=== PATIENT | female | born 1980 | race Caucasian/White ===

== ENCOUNTER 2016-12-12 16:55 | Emergency (ER) | payer MEDICARE, OTHER ==
[2016-12-12 17:12] VITALS: BP 153/90
[2016-12-12] MEDS ORDERED: NITROGLYCERIN 0.4 MG/TAB BTL SL PRN (17:19)
[2016-12-12] MEDS ORDERED: ASPIRIN 81 MG TAB.CHEW PO ONE (17:19)
[2016-12-12] MEDS ORDERED: ALBUTEROL SULFATE/IPRATROPIUM 3 ML NEBU IH ONE ×2 (17:19→17:30)
[2016-12-12] MEDS ORDERED: METHYLPREDNISOLONE SOD SUCC/PF 125 MG/2 ML VIAL IM ONE (17:22)
--- NOTE | 2016-12-12 17:26 | ERNOTE ---
<LibertyAshley - Last Filed: 12/12/16 19:06> Dyspnea - Date Date of Service: 12/12/16 - General Presenting Symptoms: shortness of breath, difficulty of breathing, other - chest pain Time Seen by Provider: 12/12/16 17:14 Source: patient, family, RN notes reviewed Exam Limitations: clinical condition - Immun/Allergies/Home Medications Immunizations: IMMUNIZATION HX History of Influenza Vaccine Yes Hx Pneumococcal Vaccination No Allergies/Adverse Reactions: Allergies desmopressin [Desmopressin] Allergy (Severe, Verified 12/12/16 17:12) Hives Home Medications: HOME MEDICATIONS Esomeprazole Magnesium [Nexium] 40 mg PO DAILY 04/05/16 [Last Taken Unknown] Levothyroxine Sodium [Synthroid] 125 mcg PO DAILY 04/05/16 [Last Taken Unknown] Lurasidone HCl [Latuda] 60 mg PO DAILY 04/05/16 [Last Taken Unknown] Mirabegron [Myrbetriq] 50 mg PO DAILY 04/05/16 [Last Taken Unknown] Montelukast Sodium [Singulair] 10 mg PO DAILY 04/05/16 [Last Taken Unknown] Hazel 1 tab PO DAILY 04/05/16 [Last Taken Unknown] clonazePAM [Klonopin] 1 mg PO TID 04/05/16 [Last Taken Unknown] lamoTRIgine [Lamictal] 300 mg PO DAILY 04/05/16 [Last Taken Unknown] metFORMIN HCL [Glucophage] 1,000 mg PO BIDWM 04/05/16 [Last Taken Unknown] [place] Carbonate 300 mg PO BID 05/14/16 [Last Taken Unknown] Acetaminophen [Tylenol] 1,000 mg PO Q6H PRN #30 tablet 05/18/16 [Last Taken Unknown] Albuterol Sulfate [Albuterol Sulfate 2.5 MG/0.5ML] 2.5 mg IH Q4H PRN #1 vial.neb 05/18/16 [Last Taken Unknown] Albuterol Sulfate/Ipratropium [Duoneb 2.5-0.5MG/3ML Soln] 3 ml IH QID #7 nebu [Last Taken Unknown] HYDROcodone/CHLORPHEN P-STIREX [Tussionex Pennkinetic Suspension] 5 ml PO Q12H PRN #1 udc 05/18/16 [Last Taken Unknown] Levofloxacin [Levaquin] 500 mg PO DAILY #1 05/18/16 [Last Taken Unknown] Nicotine [Nicoderm] 21 mg TD Q24H #30 patch.td24 05/18/16 [Last Taken Unknown] Pantoprazole Sodium [Protonix] 40 mg PO DAILY #30 tablet. 05/18/16 [Last Taken Unknown] predniSONE [Prednisone] 2 tab PO DAILY #10 tab 05/18/16 [Last Taken Unknown] Levofloxacin [Levaquin] 500 mg PO DAILY #13 tab 12/12/16 [Last Taken Unknown] predniSONE [Prednisone] 3 tab PO BID #57 tab 12/12/16 [Last Taken Unknown] - Pain Score Pain Score #1 Pain Score: 3 - chest pain - History of Present Illness Narrative: Dorcas is a 36 year old female with a history of COPD, also a heavy smoker, who presents to er with c/o increased dyspnea and chest pain. States that she has cp with her COPD exac. denies fever, nasal congestion. denies any radiation of the chest pain. duoneb prior to arrival. recent trip to [place]. pt is obese. denies calf pain. dyspnea worse with exertion. eating and drinking ok. Severity: moderate, severe Treatment [employer]: albuterol Initiating event: Reports: other - exertion Frequency of episodes: Reports: occassional episodes Modifying Factors - (Improves): Reports: nothing Modifying Factors (Worsens): Reports: nothing Associated Symptoms-Dyspnea: Reports: chest pain/discomfort, cough. Denies: fever/chills, sweating, palpitations, wheezing, leg/calf pain, ankle/leg swelling, weakness, loss of appetite Review of Systems - Review of Systems Constitutional: Present: no symptoms reported EYE: Present: no symptoms reported ENT: Present: no symptoms reported Respiratory: Present: shortness of breath, cough Cardiology: Present: chest pain. Absent: syncope Gastrointestinal/Abdominal: Present: nausea. Absent: vomiting, diarrhea Genitourinary: Present: no symptoms reported Musculoskeletal: Present: no symptoms reported Skin: Present: no symptoms reported Neurological: Present: no symptoms reported Endocrine: Present: no symptoms reported Hematologic/Lymphatic: Present: no symptoms reported Psych: Present: no symptoms reported All Other Systems: All systems neg except as marked - Patient's Past Medical History Patient History - Medical: Anxiety, Diabetes Type 2, Depression, GERD, Hypothyroidism Patient History - Cardiac/Respiratory: COPD, Hypertension, Hyperlipidemia Patient History - Cancer: No Hx of Cancer Patient History - Surgical Procedures: T & A Patient History - Other: None LMP (females 10-50): 3 weeks - Family History Mother Family History - Cardiac/Respiratory: CHF - Social History Living Situations: home Psych History: Hx of Anxiety, Hx of Depression Smoking Status: Current every day smoker Alcohol Use: none Drug Use: none - Immunizations Hx Pneumococcal Vaccination: No History of Influenza Vaccine: Yes Physical Exam - Physical Exam General Appearance: Present: alert, mild distress, anxious Eye Exam: Normal inspection: bilateral Ears, Nose, Throat: Present: normal ENT inspection, hearing grossly normal, normal pharynx Neck: Present: normal inspection, nontender, supple, full range of motion Respiratory: Present: no accessory muscle use, chest nontender, decreased breath sounds, rhonchi Cardiovascular/Chest: Present: regular rate, rhythm, normal peripheral pulses, tachycardia Gastrointestinal/Abdominal: Present: nontender, nondistended, soft Rectal Exam: Present: deferred Back Exam: Present: normal inspection, no vertebral tenderness Extremity Exam: Present: normal inspection, non-tender, no edema, normal range of motion Neurological Exam: Present: alert, oriented Skin Exam: Present: normal color, warm/dry ED Progress - Date and Time Seen: Date and Time: 12/12/16 18:20 d-dimer elevated. will order ct of chest to rule out pe. pt states she gets nauseated with iv contrast. will premedicate with iv zofran. - Results and Orders Results and Orders: Laboratory Tests 12/12/16 12/12/16 12/12/16 17:29 17:29 17:29 WBC 13.3 H RBC 5.42 H Hgb 15.6 Hct 47.3 H MCV 87.3 MCH 28.8 MCHC 33.0 RDW 11.9 Plt Count 386 MPV 9.0 Immature Gran % (Auto) 0.40 Immature Gran # (Auto) 0.05 H Neutrophils % 61.2 Lymphocytes % 26.7 Monocytes % 5.9 Eosinophils % 5.2 H Basophils % 0.6 Nucleated RBC % 0.0 Neutrophils # 8.1 H Lymphocytes # 3.5 Monocytes # 0.8 Eosinophils # 0.7 Absolute Basophils 0.1 PT 9.9 INR (Anticoag Therapy) 0.95 PTT ([place]) 23.8 L pCO2 pO2 HCO3 Total CO2 Base Excess ABG pH ABG O2 Sat (Measured) Sodium 137 Plasma Sodium 137 Potassium 4.2 Chloride 101 Carbon Dioxide 23.5 L Anion Gap 16.7 H BUN 14 Creatinine 0.96 Est GFR (Non-Af Amer) 71 BUN/Creatinine Ratio 14.6 Random Glucose 104 Calcium 9.6 Calcium Adj for Albumin 9.6 Total Bilirubin 0.3 AST 32 ALT 46 Alkaline Phosphatase 88 Troponin I Less than 0.017 B-Natriuretic Peptide 15 Total Protein 8.1 Albumin 3.6 Serum HCG, Qual 12/12/16 12/12/16 17:29 17:52 WBC RBC Hgb Hct MCV MCH MCHC RDW Plt Count MPV Immature Gran % (Auto) Immature Gran # (Auto) Neutrophils % Lymphocytes % Monocytes % Eosinophils % Basophils % Nucleated RBC % Neutrophils # Lymphocytes # Monocytes # Eosinophils # Absolute Basophils PT INR (Anticoag Therapy) PTT ([place]) pCO2 30.4 L pO2 70.9 L HCO3 18.8 L Total CO2 19.7 Base Excess -4.4 L ABG pH 7.41 ABG O2 Sat (Measured) 94.6 Sodium Plasma Sodium Potassium Chloride Carbon Dioxide Anion Gap BUN Creatinine Est GFR (Non-Af Amer) BUN/Creatinine Ratio Random Glucose Calcium Calcium Adj for Albumin Total Bilirubin AST ALT Alkaline Phosphatase Troponin I B-Natriuretic Peptide Total Protein Albumin Serum HCG, Qual Negative - Vital Signs Vital Signs: Vital Signs 12/12/16 17:05 Temperature 36.6 C Pulse Rate 110 H Respiratory 17 Rate Blood Pressure 153/90 O2 Sat by Pulse 93 Oximetry - EKG EKG: supraventricular tachycardia, nonspecific ST T wave changes EKG read: Interp. by me - X-Ray X-Ray #1 X-Ray: chest Interpretation: Reviewed by me X-ray Comments: Exam Date: 12/12/2016 18:07 Ordering Physician: Ashley Koenig History: History of COPD. Increasing shortness of breath. Cough and tightness in chest. Heavy smoker. Technique: PA and lateral views of the chest are compared to prior examination dated December 01, 2016.. Findings: Stable scattered calcified granulomas. Stable chronic bronchial wall thickening likely related to smoking. There is no consolidation, pleural effusion or pneumothorax. Cardiac silhouette and pulmonary vasculature are normal. The osseous structures are normal. IMPRESSION: NO ACUTE CARDIOPULMONARY ABNORMALITY IDENTIFIED. Electronically signed by Ted Mariscal D.O.. - Progress/Reassessment Chief Complaint: Dyspnea Progress:: Re-examined - Transfer of Care Physician Sign Out: Ashley Koenig Brief History: 36 year old female, heavy smoker, hx copd presents to er with dypsnea and cp. cp workup neg. chest xray shows chronic changes, no acute. d dimer elevated, recent travel. awaiting ct of chest to rule out pe. Receiving Physician: Tyrese Davis Pending Results: CT/MRI results Expected Disposition: Discharge Departure Clinical Impression: COPD exacerbation Pneumonia Qualifiers: Pneumonia type: due to unspecified organism Laterality: bilateral Lung location : upper lobe of lung Qualified Code(s): J18.9 - Pneumonia, unspecified organism - Departure Disposition: Home self-care Condition: Good Instructions: Community-Acquired Pneumonia, Adult, [id number], Chronic Obstructive Pulmonary Disease Exacerbation, [id number] Additional Instructions: Followup with your doctor next week. In two weeks, obtain another chest CT scan to make sure the pneumonia is gone. The pneumonia was NOT seen on the plain CXR, only on the CT scan. STOP SMOKING Prescriptions: Levofloxacin [Levaquin] 500 mg PO DAILY #13 tab predniSONE [Prednisone] 3 tab PO BID #57 tab <Tyrese Davis - Last Filed: 12/12/16 20:19> Dyspnea - Immun/Allergies/Home Medications Immunizations: IMMUNIZATION HX History of Influenza Vaccine Yes Hx Pneumococcal Vaccination No ED Progress - Results and Orders Patient's Lab Results:: I have reviewed the patient's lab results. - Vital Signs Patient's Vital Signs:: I have reviewed the patient's vital signs. Vital Signs: Vital Signs 12/12/16 12/12/16 12/12/16 17:05 17:45 17:50 Temperature 36.6 C Pulse Rate 110 H 110 H Respiratory 17 Rate Blood Pressure 153/90 O2 Sat by Pulse 93 94 Oximetry 12/12/16 19:57 Temperature Pulse Rate 124 H Respiratory 17 Rate Blood Pressure O2 Sat by Pulse 95 Oximetry - Progress/Reassessment Progress Note-Subjective: 12/12/16 20:13 I have reviewed the chest CT report. There is no evidence for pulmonary embolism. There is evidence for multiple nodular infiltrates, not seen on plane CXR, and the radiologist recommends followup.
[2016-12-12] MEDS ORDERED: METHYLPREDNISOLONE SOD SUCC/PF 125 MG/2 ML VIAL ONE (17:29)
[2016-12-12] MEDS ORDERED: ASPIRIN 81 MG TAB.CHEW ONE (17:30)
[2016-12-12 17:37] LABS: Hematocrit 47.3 % (37.0-47.0); Hemoglobin 15.6 gm/dL (12.5-16.0); Mean Cell Volume 87.3 fl (78-100); Mean Corpuscular Hemoglobin 28.8 pg (27-31); Neutrophil # 8.1 K/mm3 (1.3-6.0); Neutrophil % 61.2 % (42-75.0); Platelet Count 386 K/mm3 (150-450); Red Blood Count 5.42 M/mm3 (4.2-5.4); Red Cell Distribution Width 11.9 % (11.5-14.0); White Blood Count 13.3 K/mm3 (4.0-10.5)
[2016-12-12 17:48] LABS: Prothrombin Time (Patient) 9.9 Seconds (9.4-11.4)
[2016-12-12 17:52] LABS: INR 0.95 INR (0.90-1.10); Partial Thrombolplastin Time 23.8 Seconds (24-32)
[2016-12-12 17:56] LABS: ALT 46 U/L (19-67); AST 32 U/L (0-48); Albumin * 3.6 gm/dl (3.4-5.0); Alkaline Phosphatase * 88 U/L (50-170); Anion Gap 16.7 mmol/L (6.8-13.8); BNP * 15 pg/mL (5-150); BUN/Creatinine Ratio 14.6 (9.0-21.6); Bilirubin, Total 0.3 mg/dL (0.0-1.1); Blood Urea Nitrogen 14 mg/dL (3-23); Ca. Corrected For Albumin 9.6 mg/dL (8.4-10.2); Calcium * 9.6 mg/dL (7.9-10.9); Carbon Dioxide 23.5 mmol/L (24-32.6); Chloride 101 mmol/L (97-106); Glucose * 104 mg/dL (70-110); Potassium 4.2 mmol/L (3.4-4.6); Sodium 137 mmol/L (132-142); Total Protein 8.1 gm/dL (6.2-8.2); Troponin I Less than 0.017 ng/ml (0.00-0.10)
[2016-12-12] MEDS ORDERED: ONDANSETRON HCL/PF 2 MG/ML VIAL IV ONE (18:22)
[2016-12-12] MEDS ORDERED: ONDANSETRON HCL/PF 2 MG/ML VIAL ONE (18:39)
[2016-12-12] MEDS ORDERED: LEVOFLOXACIN/D5W 500 MG/100 ML BAG IV SCH (19:00)
[2016-12-12] MEDS ORDERED: ALBUTEROL SULFATE 2.5 MG/0.5 ML VIAL.NEB IH ONE ×3 (19:00→19:20)
[2016-12-12 20:20] LABS: Hematocrit 46.8 % (37.0-47.0); Hemoglobin 15.2 gm/dL (12.5-16.0); Mean Cell Volume 87.2 fl (78-100); Mean Corpuscular Hemoglobin 28.3 pg (27-31); Mean Corpuscular Hgb Conc 32.5 g/dl (32-36); Mean Platelet Volume 8.8 fl (6.0-9.5); Neutrophil # 11.7 K/mm3 (1.3-6.0); Neutrophil % 80.8 % (42-75.0); Platelet Count 389 K/mm3 (150-450); Red Blood Count 5.37 M/mm3 (4.2-5.4); Red Cell Distribution Width 11.8 % (11.5-14.0); White Blood Count 14.5 K/mm3 (4.0-10.5)
[2016-12-12 20:34] LABS: Albumin * 3.6 gm/dl (3.4-5.0); Anion Gap 20.3 mmol/L (6.8-13.8); BUN/Creatinine Ratio 15.4 (9.0-21.6); Bilirubin, Total 0.3 mg/dL (0.0-1.1); Ca. Corrected For Albumin 9.4 mg/dL (8.4-10.2); Calcium * 9.4 mg/dL (7.9-10.9); Carbon Dioxide 20.2 mmol/L (24-32.6); Potassium 4.5 mmol/L (3.4-4.6); Total Protein 8.1 gm/dL (6.2-8.2)
== END 2016-12-12 21:07 | disposition home or self-care (01) ==
LOC: ER 16:55
PROC: 4A033R1 Measurement of Arterial Saturation, Peripheral, Percutaneous Approach (ICD-10-PCS; principal; 2016-12-12)
DX: J06.9 Acute upper respiratory infection, unspecified (principal); J44.9 Chronic obstructive pulmonary disease, unspecified; F17.210 Nicotine dependence, cigarettes, uncomplicated; J18.9 Pneumonia, unspecified organism; R07.9 Chest pain, unspecified

== ENCOUNTER 2016-12-18 14:17 | Emergency (ER) | payer MEDICARE, OTHER ==
[2016-12-18] MEDS ORDERED: ALBUTEROL SULFATE/IPRATROPIUM 3 ML NEBU IH ONE ×2 (15:09→15:19)
--- OUTSIDE RECORDS SUMMARY | 2016-12-18 15:11 | XMS REPORT | Continuity of Care Document ---
:1980 Author Organization [employer] [place] [id number] Care Team Providers Name Role Phone Jersey Gonzales Primary Care Provider [phone] Source Comments This disclosure is being made pursuant to the [employer] program and maynot contain all information available regarding this patient.[employer] Active Allergies and Adverse Reactions Allergen Noted Date Severity Reactions Comments Desmopressin 02/27/2013 Low Edema Current Medications Be aware that medications may not be up to date as of this document. Alwaysverify current medications with the patient. Prescription Sig. Disp. Refills Start Date End Date Status metFORMIN Take 500 mg by Active (GLUCOPHAGE) 500 MG mouth 2 (two) tablet times daily with meals. Indications: Polycystic Ovary Syndrome levothyroxine Take 100 mcg by Active (SYNTHROID, mouth every LEVOTHROID) 100 MCG morning. Takes 200 tablet mcg every Tuesday Indications: Underactive Thyroid drospirenone-ethinyl Take 1 tablet by Active estradiol (ROBBIN mouth daily. 28) 3-0.03 MG per tablet Albuterol Sulfate Inhale 2 puffs Active (PROVENTIL HFA IN) into the lungs every 4 (four) hours as needed. omeprazole Take 20 mg by Active (PRILOSEC) 20 MG mouth daily after capsule breakfast. chlorhexidine Use as directed 15 900 mL 0 03/05/2013 Active (PERIDEX) 0.12 % mLs in the mouth solution or throat every 12 (twelve) hours. fluPHENAZine Take 2 tablets by 60 tablet 1 03/05/2013 Active (PROLIXIN) 5 MG mouth nightly. tablet hydrOXYzine Take 1 capsule by 120 capsule 1 03/05/2013 Active (VISTARIL) 50 MG mouth 4 (four) capsule times daily. Indications: Feeling Anxious traZODone (DESYREL) Take 3 tablets by 90 tablet 1 03/05/2013 Active 100 MG tablet mouth nightly. gabapentin Take 2 capsules by 180 capsule 1 03/05/2013 Active (NEURONTIN) 100 MG mouth 3 (three) capsule times daily. Active Problems Problem Noted Date Schizophrenia ([facility]) 03/03/2013 Polysubstance (excluding opioids) dependence ([facility]) 03/03/2013 Most Recent Encounters Date Type Specialty Providers Description 10/21/2016 Data Import Social History Tobacco Use Types Packs/Day Years Used Date Current Every Day Smoker 2 Tobacco Cessation:Ready to Quit: No Comments: Alcohol Use Drinks/Week oz/Week Comments No Last Filed Vital Signs Vital Sign Reading Time Taken Blood Pressure 116/84 03/05/2013 9:00 AM CDT Pulse 74 03/05/2013 9:00 AM CDT Temperature 36.8 C (98.2 F) 03/05/2013 9:00 AM CDT Respiratory Rate 16 03/05/2013 9:00 AM CDT Height 1.727 m (5' 8") 02/27/2013 7:22 PM CDT Weight 158.305 kg (349 lb) 02/27/2013 7:22 PM CDT Body Mass Index 53.08 02/27/2013 7:22 PM CDT Oxygen Saturation 92% 02/27/2013 5:40 PM CDT Plan of Care Health Maintenance Due Date Last Done Comments Tetanus/Pertussis (1 - Tdap) 2001 Pap Smear 2003 Influenza Immunization (#1) 2016 Results from Last 3 Months Not on file
--- OUTSIDE RECORDS SUMMARY | 2016-12-18 15:11 | XMS REPORT | Continuity of Care Document ---
:1980 Author Organization [facility] ([facility]) [place] [address] Phone [phone] Care Team Providers Name Role Phone Shazia Drake Primary Care Provider [phone] Source Comments This disclosure is being made pursuant to the Care Everywhere program, applicable federal and state laws, and may not contain all informaitonavailable regarding this patient.[facility] ([facility]) Active Allergies and Adverse Reactions Allergen Noted Date Severity Reactions Comments Desmopressin 06/16/2012 Urticaria (Hives),Angioedema Current Medications Prescription Sig. Disp. Refills Start Date End Date Status ZOLPIDEM TARTRATE Take by mouth. Active (AMBIEN PO) CLONAZEPAM PO Take by mouth. Active RISPERIDONE (RISPERDAL Take by mouth. Active PO) CITALOPRAM HYDROBROMIDE Take by mouth. Active (CELEXA PO) traMADol 50 mg tablet Take 1-2 Tabs by 20 Tab 0 06/16/2012 Active mouth every 6 hours as needed for Pain. Indications: PAIN ondansetron 4 mg tablet Take 1 tablet (4 10 tablet 0 2016 Active mg total) by mouth every 6 hours as needed for Nausea&Vomiting. promethazine-codeine Take 5 mL by 118 mL 0 2016 Active 6.25-10 mg/5 mL syrup mouth every 8 hours as needed for cough. Active Problems Problem Noted Date Unspecified symptom associated with female genital organs 10/11/2005 Most Recent Encounters Date Type Specialty Providers Description 12/03/2016 Lab Requisition Pathology [facility] Dx: Neoplasm of uncertain behavior of skin Social History Tobacco Use Types Packs/Day Years Used Date Current Every Day Smoker 2 13 Smokeless Tobacco: Never Used Last Filed Vital Signs Vital Sign Reading Time Taken Blood Pressure 133/67 2016 5:23 PM CDT Pulse 116 2016 5:22 PM CDT Temperature 37.1 C (98.8 F) 2016 5:22 PM CDT Respiratory Rate 24 2016 5:22 PM CDT Height 1.73 m (5' 8.11") 10/11/2005 9:40 AM [employer]INDOWS IN[employer]ER Weight 115.096 kg (253 lb 11.8 oz) 01/10/2006 12:46 PM [employer]INDOWS [employer]INEER Body Mass Index 38.46 01/10/2006 12:46 PM [employer]INDOWS [employer] ENGINEER Oxygen Saturation 94% 2016 5:22 PM CDT Plan of Care Health Maintenance Due Date Last Done Comments Hepatitis B Vaccine (1 of 3 - Primary Series) 1982 Tdap Vaccine 1993 MMR Vaccine 2000 Td Vaccine 2000 Varicella Vaccine (1 of 2 - Adult - No Evidence of 2000 Immunity) Pneumococcal Vaccine (1 of 1 - PPSV23) 2001 Lipid Disorder Screening 01/03/2011 01/03/2006 Cervical Cancer Screening 2012 Influenza Vaccine: Seasonal (#1) 06/07/2016 Results from Last 3 Months DERMATOPATHOLOGY EXAM (12/01/2016 1:05 PM) Component Value Range Case Report Surgical Pathology Case: [id number] Authorizing Provider:[facility] Collected: 12/01/2016 01:05 PM Pathologist: Roosevelt Pollack MD Received:12/03/2016 01:06 PM Specimen:Skin, other, specify, L Forearm Diagnosis Skin, left forearm, punch: 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 Clinical Information Tissue source/site: [id number] forearm. Pertinent clinical history and findings: Firm nodules, nontender. Clinical differential diagnosis: Panniculitis vs sarcoid vs deep GA. Gross Description A.Received in formalin, in a container labeled Asif, Dorcas L, date of , and "L Forearm", is a 0.5 cm in diameter x 1.5 cm in length fraga punch biopsy.The specimen is inked, bisected andsubmitted entirely in A1. ATC/tkr Microscopic Description Sections show a skin punch demonstrating multinodular aggregation of epithelioid histiocytes forming discrete granulomas with background scattered lymphocytic infiltration, involving the dermis extend ing into the subcutis.No birefringent foreign material is identified on polariscopic examination. Performed by:Lulu Barraza MD, R3/rls I have personally reviewed this case and edited the report as necessary. Roosevelt Pollack MD Specimen Skin - Skin, other, specify
[2016-12-18 15:26] LABS: Hematocrit 46.9 % (37.0-47.0); Hemoglobin 15.3 gm/dL (12.5-16.0); Mean Corpuscular Hemoglobin 28.4 pg (27-31); Mean Corpuscular Hgb Conc 32.6 g/dl (32-36); Neutrophil # 11.7 K/mm3 (1.3-6.0); Neutrophil % 65.8 % (42-75.0); Platelet Count 400 K/mm3 (150-450); Red Blood Count 5.39 M/mm3 (4.2-5.4); White Blood Count 17.7 K/mm3 (4.0-10.5)
[2016-12-18 15:42] LABS: Albumin * 3.4 gm/dl (3.4-5.0); Anion Gap 17.2 mmol/L (6.8-13.8); BUN/Creatinine Ratio 15.9 (9.0-21.6); Bilirubin, Total 0.3 mg/dL (0.0-1.1); Ca. Corrected For Albumin 9.4 mg/dL (8.4-10.2); Calcium * 9.2 mg/dL (7.9-10.9); Carbon Dioxide 25.5 mmol/L (24-32.6); Potassium 3.7 mmol/L (3.4-4.6); Total Protein 7.2 gm/dL (6.2-8.2)
[2016-12-18 16:29] VITALS: BP 145/73
[2016-12-18] MEDS ORDERED: ALBUTEROL SULFATE 2.5 MG/0.5 ML VIAL.NEB IH ONE ×2 (16:49)
--- NOTE | 2016-12-18 17:34 | ERNOTE ---
Date of Service: 12/18/16 Time Seen by Provider: 12/18/16 15:00 Stated Complaint: COLD Presenting Symptoms:: cough Source: patient Exam Limitations: no limitations Immunizations: IMMUNIZATION HX Immunizations Up to Date Yes History of Influenza Vaccine Yes Hx Pneumococcal Vaccination No Allergies/Adverse Reactions: Allergies desmopressin [Desmopressin] Allergy (Severe, Verified 12/12/16 17:12) Hives Home Medications: HOME MEDICATIONS Esomeprazole Magnesium [Nexium] 40 mg PO DAILY 04/05/16 [Last Taken Unknown] Levothyroxine Sodium [Synthroid] 125 mcg PO DAILY 04/05/16 [Last Taken Unknown] Lurasidone HCl [Latuda] 60 mg PO DAILY 04/05/16 [Last Taken Unknown] Mirabegron [Myrbetriq] 50 mg PO DAILY 04/05/16 [Last Taken Unknown] Montelukast Sodium [Singulair] 10 mg PO DAILY 04/05/16 [Last Taken Unknown] Hazel 1 tab PO DAILY 04/05/16 [Last Taken Unknown] lamoTRIgine [Lamictal] 300 mg PO DAILY 04/05/16 [Last Taken Unknown] metFORMIN HCL [Glucophage] 1,000 mg PO BIDWM 04/05/16 [Last Taken Unknown] [place] Carbonate 300 mg PO BID 05/14/16 [Last Taken Unknown] Albuterol Sulfate [Albuterol Sulfate 2.5 MG/0.5ML] 2.5 mg IH Q4H PRN #1 vial.neb 05/18/16 [Last Taken Unknown] Albuterol Sulfate/Ipratropium [Duoneb 2.5-0.5MG/3ML Soln] 3 ml IH QID #7 nebu [Last Taken Unknown] Levofloxacin [Levaquin] 500 mg PO DAILY #1 05/18/16 [Last Taken Unknown] Pantoprazole Sodium [Protonix] 40 mg PO DAILY #30 tablet. 05/18/16 [Last Taken Unknown] predniSONE [Prednisone] 2 tab PO DAILY #10 tab 05/18/16 [Last Taken Unknown] Levofloxacin [Levaquin] 500 mg PO DAILY #13 tab 12/12/16 [Last Taken Unknown] Methylprednisolone [Medrol Dosepak] 4 mg PO QID #21 tab 12/12/16 [Last Taken Unknown] predniSONE [Prednisone] 3 tab PO BID #57 tab 12/12/16 [Last Taken Unknown] Alprazolam [Alprazolam Xr] 1 mg PO BID 12/18/16 [Last Taken Unknown] Benzonatate [Tessalon Perle] 100 mg PO TID PRN #20 capsule 12/18/16 [Last Taken Unknown] Pioglitazone HCl [Actos] 15 mg PO DAILY 12/18/16 [Last Taken Unknown] Zolpidem Tartrate [Ambien] 5 mg PO HS 12/18/16 [Last Taken Unknown] - History of Present Ilness Narrative: Patient presents for on going cough. She was seen here recently for cough and trouble breathing, had work up and was discharged with antibiotics and steroids. Despite meds she still has cough. She is using her neb at home. She has been told she needs to see a paper cutter but can't get in until January. Her primary symptom is cough. She states it is a dry cough and it keeps her up. She has some SOB with the coughing. CP only with cough. No DVT Sx. No vomiting. Timing: constant Severity: other - she relates her cough Sx as severe Frequency/Possible Cause: Reports: frequent episodes Modifying Factors - Improves: Reports: albuterol Modifying Factors - Worsens: Reports: nothing Associated Symptoms: Reports: cough, nasal congestion. Denies: fever/chills Prior Treatment: Reports: recently seen Review of Systems - Review of Systems Constitutional: Absent: fever EYE: Present: no symptoms reported ENT: Present: no symptoms reported Respiratory: Present: See HPI Cardiology: Present: See HPI Gastrointestinal/Abdominal: Absent: abdominal pain Neurological: Absent: weakness - Patient's Past Medical History Patient History - Medical: Anxiety, Diabetes Type 2, Depression, GERD, Hypothyroidism, Other Patient History - Cardiac/Respiratory: COPD, Hypertension, Hyperlipidemia Patient History - Cancer: No Hx of Cancer Patient History - Surgical Procedures: T & A Patient History - Other: None LMP (females 10-50): 3 weeks - Family History Mother Family History - Cardiac/Respiratory: CHF - Social History Living Situations: alone Abuse History: No History of abuse Psych History: Hx of Anxiety, Hx of Depression Smoking Status: Current every day smoker Have you smoked in the past 12 months: Yes Alcohol Use: none Drug Use: none - Immunizations Immunizations Up to Date: Yes Hx Pneumococcal Vaccination: No History of Influenza Vaccine: Yes Physical Exam - Physical Exam General Appearance: Present: alert, no apparent distress, other - Frequent dry harsh cough. No distress. Speaking in full sentences. Well hydrated. Non- toxic Eye Exam: Normal inspection: bilateral, PERRL: bilateral Ears, Nose, Throat: Present: nasal congestion. Absent: pharyngeal swelling, tonsillar exudate, dry mucous membranes Neck: Present: normal inspection Respiratory: Present: no respiratory distress, no accessory muscle use, other - frequent harsh cough. Few occasional faint wheezes with cough. When not coughing she has no distress and no wheezing at rest. Cardiovascular/Chest: Present: regular rate, rhythm, normal peripheral pulses Gastrointestinal/Abdominal: Present: normal bowel sounds, nondistended, soft. Absent: tenderness Back Exam: Present: normal range of motion Extremity Exam: Present: normal inspection, other - no DVT findings Neurological Exam: Present: alert, normal mood/affect, no motor/sensory deficits , quality audit representative II-XII nml as tested Skin Exam: Absent: skin rash ED Progress - Results and Orders Patient's Lab Results:: I have reviewed the patient's lab results. - Vital Signs Patient's Vital Signs:: I have reviewed the patient's vital signs. Vital Signs: Vital Signs 12/18/16 12/18/16 12/18/16 14:22 15:42 15:44 Temperature 37.1 C Pulse Rate 114 H 82 86 Respiratory 16 16 16 Rate Blood Pressure 148/80 138/86 O2 Sat by Pulse 94 94 95 Oximetry 12/18/16 12/18/16 16:29 16:51 Temperature Pulse Rate 76 82 Respiratory 16 16 Rate Blood Pressure 145/73 O2 Sat by Pulse 94 94 Oximetry - X-Ray X-Ray #1 X-Ray: chest Interpretation: Interp. by me X-ray Comments: I reviewed the CXR, NAPP. Official radiology report pending - Progress/Reassessment Chief Complaint: Cough Progress Note-Subjective: 12/18/16 17:31 Feels better after nebs. She is in no distress and not hypoxic. Her elevated WBC is likely from the steroids she was placed on. Will give cough medicatin and close f/u. She is not hypoxic, no distress, stable at this time. i discussed warning signs and reasons to return as well as the need for close f/u. Departure - Departure Clinical Impression: Cough Disposition: Home self-care Condition: Stable Instructions: Cough, Adult, [id number] Additional Instructions: Rest. Fluids. Continue your steroids and antibiotics. Use your inhaler or nebulizer every four hours. See your doctor tuesday for a re-check. Take cough medication as directed. Return for fever, shortness of breath, vomiting or if your condition worsens or changes in any way. Prescriptions: Benzonatate [Tessalon Perle] 100 mg PO TID PRN #20 capsule PRN Reason: Cough
== END 2016-12-18 17:35 | disposition home or self-care (01) ==
LOC: ER 14:17
DX: R05 Cough (principal); E11.9 Type 2 diabetes mellitus without complications; E03.9 Hypothyroidism, unspecified; K21.9 Gastro-esophageal reflux disease without esophagitis; I10 Essential (primary) hypertension; F32.9 Major depressive disorder, single episode, unspecified; J44.9 Chronic obstructive pulmonary disease, unspecified; F17.210 Nicotine dependence, cigarettes, uncomplicated